=== PATIENT | female | born 1970 | race Caucasian/White ===

== ENCOUNTER 2016-09-08 19:46 | Emergency (ER) | payer OTHER ==
[2016-09-08] MEDS ORDERED: Sodium Chloride 0.9% 1,000 ML IV ONE (20:30)
--- NOTE | 2016-09-08 20:30 | C.PDOC ---
History Of Present Illness Pt ate at a restaurant yesterday after which she developed nausea, vomiting diarrhea and abdominal pain. Decreased po intake crampy abd pain. decreased po intake Time Seen by Provider: 09/08/16 20:30 Chief Complaint (Nursing): Abdominal Pain History/Exam Limitations: no limitations Onset/Duration Of Symptoms: Days (1) Current Symptoms Are (Timing): Still Present Context: Food Severity: Moderate Pain Scale Rating Of: 4 Location Of Pain/Discomfort: Diffuse Radiation Of Pain To:: None Quality Of Discomfort: Dull, Cramping Associated Symptoms: Nausea, Vomiting, Diarrhea. denies: Fever, Chills Exacerbating Factors: Food Alleviating Factors: None Last Bowel Movement: Today Recent travel outside of the [place]: No Additional History Per: Patient Abnormal Vaginal Bleeding: No Past Medical History Reviewed: Historical Data, Nursing Documentation, Vital Signs Vital Signs: Last Vital Signs Temp 97.9 F 09/08/16 19:55 Pulse 100 H 09/08/16 19:55 Resp 18 09/08/16 19:55 BP 101/71 09/08/16 19:55 Pulse Ox 99 09/08/16 20:30 - Medical History PMH: Asthma, HTN, Migraine Family History: States: No Known Family Hx - Social History Hx Alcohol Use: Yes Hx Substance Use: No - Immunization History Hx Influenza Vaccination: Yes Review Of Systems Constitutional: Negative for: Fever, Chills ENT: Negative for: Throat Pain Cardiovascular: Negative for: Chest Pain, Palpitations Respiratory: Negative for: Shortness of Breath Gastrointestinal: Positive for: Nausea, Vomiting, Abdominal Pain Genitourinary: Negative for: Dysuria Musculoskeletal: Negative for: Back Pain Skin: Negative for: Jaundice Neurological: Negative for: Weakness Psych: Negative for: Anxiety Physical Exam - Physical Exam Appears: Non-toxic Skin: Warm, Dry Oral Mucosa: Moist Neck: Supple Chest: Symmetrical Cardiovascular: Rhythm Regular Respiratory: No Rales, No Rhonchi, No Wheezing Gastrointestinal/Abdominal: No Soft, No Tenderness, No Distention Back: No CVA Tenderness Extremity: No Normal ROM Extremity: Bilateral: Atraumatic Neurological/Psych: Oriented x3, Normal Speech, Normal Cognition Gait: Steady ED Course And Treatment - Laboratory Results Result Diagrams: 09/08/16 20:41 09/08/16 20:41 O2 Sat by Pulse Oximetry: 99 Disposition Counseled Patient/Family Regarding: Studies Performed, Diagnosis, Need For Followup, Rx Given - Disposition Referrals: [facility] [Outside] Disposition: HOME/ ROUTINE Disposition Time: 20:30 Condition: FAIR Prescriptions: Ondansetron ODT [Zofran ODT] 1 odt PO BID PRN #10 odt PRN Reason: Nausea/Vomiting Instructions: Food Poisoning (ED) - Clinical Impression Clinical Impression: Abdominal pain, Food poisoning
[2016-09-08] MEDS ORDERED: Sodium Chloride 0.9% 1,000 ML ONE (20:41)
[2016-09-08 20:44] LABS: RBC URINE 2 /hpf (0-3); URINE BACTERIA RARE (<OCC); URINE BILIRUBIN NEGATIVE (NEGATIVE); URINE BLOOD NEGATIVE (NEGATIVE); URINE COLOR Yellow (YELLOW); URINE GLUCOSE (UA) NORMAL (Normal); URINE KETONE 1+ mg/dL (NEGATIVE); URINE LEUKOCYTE ESTERASE NEG Leu/uL (Negative); URINE PROTEIN 1+ mg/dL (NEGATIVE); URINE UROBILINOGEN NORMAL mg/dL (0.2-1.0); WBC URINE 3 /hpf (0-5)
[2016-09-08 20:56] LABS: CHLORIDE 103 mmol/L (98-107); SODIUM 141 mmol/L (132-148)
[2016-09-08 20:57] LABS: POTASSIUM 3.6 mmol/L (3.6-5.2)
[2016-09-08 20:58] LABS: GFR AFRICAN-AMERICAN > 60
[2016-09-08 20:59] LABS: ALB/GLOB RATIO 1.3 (1.0-2.1); ALKALINE PHOSPHATASE 67 U/L (38-126); ALT/SGPT 21 U/L (9-52); AST/SGOT 24 U/L (14-36); BILIRUBIN,TOTAL 0.8 mg/dL (0.2-1.3); BLOOD UREA NITROGEN 17 mg/dL (7-17); CALCIUM 8.3 mg/dl (8.6-10.4); CARBON DIOXIDE 24 mmol/L (22-30); GLUCOSE,RANDOM 98 mg/dL (65-105); TOTAL PROTEIN 7.1 g/dL (6.3-8.3)
[2016-09-08 21:06] LABS: BASO % 0.2 % (0.0-2.0); HEMATOCRIT 40.4 % (34.0-47.0); LYMPH # 0.8 K/uL (1.0-4.3); LYMPH % 9.5 % (20.0-40.0); MEAN CELL VOLUME 86.5 fL (81.0-99.0); MEAN CORPUSCULAR HEMOGLOBIN 28.7 pg (27.0-31.0); MEAN CORPUSCULAR HGB CONC 33.1 g/dL (33.0-37.0); MEAN PLATELET VOLUME 9.3 fL (7.2-11.7); MONO # 0.3 K/uL (0.0-0.8); MONO % 3.6 % (0.0-10.0); PLATELET COUNT 217 K/uL (130-400); RED CELL DISTRIBUTION WIDTH 13.4 % (11.5-14.5); WHITE BLOOD COUNT 8.4 K/uL (4.8-10.8)
[2016-09-08 22:26] VITALS: BP 113/77; PULSE 82; RESP 20; TEMP 98.5; O2SAT 100
[2016-09-08 22:45] LABS: NEUTROPHIL 77 % (50-75); TOTAL CELLS COUNTED 100
[2016-09-08 22:47] LABS: GIANT PLATELETS PRESENT; LARGE PLATELETS PRESENT; SMUDGE CELLS PRESENT
== END 2016-09-08 22:29 | disposition home or self-care (01) ==
LOC: C.ER 19:46
DX: T62.91XA Toxic effect of unspecified noxious substance eaten as food, accidental (unintentional), initial encounter (principal); R10.9 Unspecified abdominal pain
CPT/HCPCS: 80053; 81001; 83690; 84703; 85025; 96361; 96374; 96375; 99285; J2405; J7040

== ENCOUNTER 2016-09-10 10:07 | Observation (INO) | payer OTHER ==
[2016-09-10] MEDS ORDERED: Sodium Chloride 0.9% 1,000 ML ONE (10:36)
[2016-09-10 10:41] LABS: RBC URINE 13 /hpf (0-3); URINE BACTERIA OCC (<OCC); URINE BILIRUBIN NEGATIVE (NEGATIVE); URINE BLOOD 1+ (NEGATIVE); URINE COLOR Amber (YELLOW); URINE GLUCOSE (UA) NORMAL (Normal); URINE KETONE TRACE mg/dL (NEGATIVE); URINE LEUKOCYTE ESTERASE NEG Leu/uL (Negative); URINE PROTEIN 2+ mg/dL (NEGATIVE); URINE UROBILINOGEN NORMAL mg/dL (0.2-1.0); WBC URINE 3 /hpf (0-5)
[2016-09-10] MEDS ORDERED: Sodium Chloride 0.9% 1,000 ML IV ONE (10:42)
--- NOTE | 2016-09-10 10:44 | C.PDOC ---
History Of Present Illness 46 year old patient, with a past medical history of migraines, hypertension, and asthma, presents to the ED complaining of vomiting, diarrhea and generalized abdominal pain for the past 3 days. Patient was seen in the ER for the same complaint 2 days ago. She was discharged with Zofran. Patient states she took Zofran, but she still continued to vomit. Patient also complains of weakness and headache that began today. Patient denies any fever, chest pain, shortness of breath or urinary symptoms. Time Seen by Provider: 09/10/16 10:37 Chief Complaint (Nursing): GI Problem History Per: Patient History/Exam Limitations: no limitations Onset/Duration Of Symptoms: Days (3) Current Symptoms Are (Timing): Still Present Context: Other Severity: Mild Pain Scale Rating Of: 3 Location Of Pain/Discomfort: Diffuse Radiation Of Pain To:: None Quality Of Discomfort: "Pain" Associated Symptoms: Vomiting, Diarrhea Exacerbating Factors: None Alleviating Factors: None Last Bowel Movement: Today Recent travel outside of the [place]: No Additional History Per: Prior Records Abnormal Vaginal Bleeding: No Past Medical History Reviewed: Historical Data, Nursing Documentation, Vital Signs Vital Signs: Last Vital Signs Temp 98.6 F 09/10/16 12:08 Pulse 80 09/10/16 12:08 Resp 15 09/10/16 12:08 BP 99/66 L 09/10/16 12:08 Pulse Ox 99 09/10/16 12:29 - Medical History PMH: Asthma, HTN, Migraine Family History: States: Unknown Family Hx - Social History Hx Alcohol Use: Yes Hx Substance Use: No - Immunization History Hx Influenza Vaccination: Yes Review Of Systems Except As Marked, All Systems Reviewed And Found Negative. Constitutional: Positive for: Weakness. Negative for: Fever Cardiovascular: Negative for: Chest Pain Respiratory: Negative for: Shortness of Breath Gastrointestinal: Positive for: Vomiting, Abdominal Pain, Diarrhea Genitourinary: Negative for: Dysuria, Frequency Neurological: Positive for: Headache Physical Exam - Physical Exam Appears: Non-toxic, No Acute Distress Skin: Warm, Dry Head: Atraumatic, Normacephalic Eye(s): bilateral: Normal Inspection, EOMI Oral Mucosa: Moist Neck: Normal ROM, Supple Chest: Symmetrical Cardiovascular: Rhythm Regular Respiratory: Normal Breath Sounds, No Rales, No Rhonchi, No Wheezing Gastrointestinal/Abdominal: Soft, Tenderness (generalized; non-focal), No Guarding, No Rebound Back: Normal Inspection, No CVA Tenderness Extremity: Normal ROM Neurological/Psych: Oriented x3 Gait: Steady ED Course And Treatment - Laboratory Results Result Diagrams: 09/10/16 10:45 09/10/16 10:45 O2 Sat by Pulse Oximetry: 99 (room air) Pulse Ox Interpretation: Normal - CT Scan/US Abdomen/Pelvis CT Other Rad Studies (CT/US): Read By Radiologist (Cory Ortega MD), Radiology Report Reviewed CT/US Interpretation: PROCEDURE: CT Abdomen and Pelvis with contrast. HISTORY : abd pain, vomiting and diarrhea. COMPARISON: None. TECHNIQUE: Contrast dose: 100 cc Visipaque 320. Radiation dose: Total exam DLP = 250.27 mGy-cm. This CT exam was performed using one or more of the following dose reduction techniques: Automated exposure control, adjustment of the mA and/or kV according to patient size, and/or use of iterative reconstruction technique. FINDINGS: LOWER THORAX: Unremarkable. LIVER: Unremarkable. No gross lesion or ductal dilatation. GALLBLADDER AND BILE DUCTS: Unremarkable. PANCREAS: Unremarkable. No gross lesion or ductal dilatation. SPLEEN: Unremarkable. ADRENALS: Unremarkable. No mass. KIDNEYS AND URETERS: Unremarkable. No hydronephrosis. No solid mass. VASCULATURE: Unremarkable. No aortic aneurysm. BOWEL: Diffuse, severe licona colitis. No associated mechanical obstruction, loculated air or free air. APPENDIX: Normal appendix. PERITONEUM: Trace free fluid identified in the pelvis/cul de sac. LYMPH NODES: Unremarkable. No enlarged lymph nodes. BLADDER: Unremarkable. REPRODUCTIVE: Unremarkable. BONES: No acute fracture. OTHER FINDINGS: None. IMPRESSION: Severe licona colitis. Additional benign and/or incidental findings described above. Medical Decision Making Medical Decision Making: Impression: 46 y/o female with vomiting, diarrhea, and generalized abdominal pain Plan: * Abdomen/Pelvis CT (IV contrast) * Labs * Protonix, IV fluids, Zofran * Reassess and disposition Progress: Chart reviewed from 09/08/16. Labs were unremarkable. ED OBSERVATION Discharge: Yes Date of observation admission: 09/10/16 Time of observation admission: 10:44 - Observation admission statement Patient is being placed in observation because:: Abdominal pain with associated vomiting and diarrhea - Goals of Observation Goals of observation are:: IV hydration, labs and imaging - Progress Note Progress Note: 09/10/16 11:30 Labs reviewed and no acute changes from last visit. No leukocytosis shift or electrolyte abnormality. 09/10/16 12:20 CT reviewed showing colitis 09/10/16 12:28 Patient re-evaluated she remains afebrile and reports feeling better. I explained lab and CT findings. She is agreeable with plan for discharge with antibiotics. Instruct to follow up with primary physician in few days. 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 - Scribe Statement The provider has reviewed the documentation as recorded by the Scribe Darcy Rivero All medical record entries made by the Scribe were at my direction and personally dictated by me. I have reviewed the chart and agree that the record accurately reflects my personal performance of the history, physical exam, medical decision making, and the department course for this patient. I have also personally directed, reviewed, and agree with the discharge instructions and disposition.
[2016-09-10 10:49] LABS: HEMATOCRIT 40.3 % (34.0-47.0); LYMPH # 1.1 K/uL (1.0-4.3); LYMPH % 23.7 % (20.0-40.0); MEAN CELL VOLUME 85.4 fL (81.0-99.0); MEAN CORPUSCULAR HEMOGLOBIN 28.7 pg (27.0-31.0); MEAN CORPUSCULAR HGB CONC 33.6 g/dL (33.0-37.0); MEAN PLATELET VOLUME 9.1 fL (7.2-11.7); MONO # 0.5 K/uL (0.0-0.8); MONO % 10.4 % (0.0-10.0); NRBC % 0.1 % (0.0-2.0); RED CELL DISTRIBUTION WIDTH 13.5 % (11.5-14.5); WHITE BLOOD COUNT 4.5 K/uL (4.8-10.8)
[2016-09-10 10:59] LABS: CHLORIDE 101 mmol/L (98-107); POTASSIUM 3.7 mmol/L (3.6-5.2); SODIUM 138 mmol/L (132-148)
[2016-09-10 11:01] LABS: GFR AFRICAN-AMERICAN > 60
[2016-09-10 11:02] LABS: ALB/GLOB RATIO 1.1 (1.0-2.1); ALKALINE PHOSPHATASE 60 U/L (38-126); ALT/SGPT 26 U/L (9-52); AST/SGOT 32 U/L (14-36); BILIRUBIN,TOTAL 0.9 mg/dL (0.2-1.3); BLOOD UREA NITROGEN 10 mg/dL (7-17); CALCIUM 8.1 mg/dl (8.6-10.4); CARBON DIOXIDE 23 mmol/L (22-30); GLUCOSE,RANDOM 88 mg/dL (65-105); TOTAL PROTEIN 6.9 g/dL (6.3-8.3)
[2016-09-10] MEDS ORDERED: Iodixanol 320 MG/ML 100 ML BOTTLE IV ONE (11:33)
[2016-09-10 12:09] VITALS: BP 99/66; PULSE 80; RESP 15; TEMP 98.6
--- NOTE | 2016-09-10 12:15 | CT ---
PROCEDURE: CT Abdomen and Pelvis with contrast HISTORY: abd pain, vomiting and diarrhea COMPARISON: None. TECHNIQUE: Contrast dose: 100 cc Visipaque 320. Radiation dose: Total exam DLP = 250.27 mGy-cm. This CT exam was performed using one or more of the following dose reduction techniques: Automated exposure control, adjustment of the mA and/or kV according to patient size, and/or use of iterative reconstruction technique. FINDINGS: LOWER THORAX: Unremarkable. LIVER: Unremarkable. No gross lesion or ductal dilatation. GALLBLADDER AND BILE DUCTS: Unremarkable. PANCREAS: Unremarkable. No gross lesion or ductal dilatation. SPLEEN: Unremarkable. ADRENALS: Unremarkable. No mass. KIDNEYS AND URETERS: Unremarkable. No hydronephrosis. No solid mass. VASCULATURE: Unremarkable. No aortic aneurysm. BOWEL: Diffuse, severe licona colitis. No associated mechanical obstruction, loculated air or free air. APPENDIX: Normal appendix. PERITONEUM: Trace free fluid identified in the pelvis/cul de sac. LYMPH NODES: Unremarkable. No enlarged lymph nodes. BLADDER: Unremarkable. REPRODUCTIVE: Unremarkable. BONES: No acute fracture. OTHER FINDINGS: None. IMPRESSION: Severe licona colitis. Additional benign and/or incidental findings described above.
[2016-09-10 12:16] VITALS: O2SAT 99
== END 2016-09-10 12:29 | disposition home or self-care (01) ==
LOC: C.ER 10:07 → C.9OBSV 10:43
PROVIDERS: ADMIT Emergency Medicine; ATTEND Emergency Medicine
DX: K52.9 Noninfective gastroenteritis and colitis, unspecified (principal); J45.909 Unspecified asthma, uncomplicated; I10 Essential (primary) hypertension
CPT/HCPCS: 74177; 80053; 81001; 83690; 84703; 85025; 96360; 96374; 99283; C9113; G0378; J2405; J7040; Q9967

== ENCOUNTER 2016-10-25 10:34 | Emergency (ER) | payer OTHER ==
[2016-10-25 10:47] VITALS: RESP 18; O2SAT 100
[2016-10-25] MEDS ORDERED: Sodium Chloride 0.9% 1,000 ML IV ONE (10:56)
[2016-10-25] MEDS ORDERED: Sodium Chloride 0.9% 1,000 ML ONE (11:05)
--- NOTE | 2016-10-25 11:16 | C.PDOC ---
History Of Present Illness 46 y/o female presents to ED with complaints of left flank pain and sharp left suprapubic pain which onset 1 hour ago. Pt reports associated nausea, 1 episode of vomiting, urinary frequency, and dysuria. Pt took OTC pain reliever without relief. History of kidney stones. PSHx breast implants and liposuction last year. Denies fever, chest pain, SOB or any other complaints. Time Seen by Provider: 10/25/16 10:56 Chief Complaint (Nursing): Abdominal Pain History Per: Patient History/Exam Limitations: no limitations Onset/Duration Of Symptoms: Mins Current Symptoms Are (Timing): Still Present Severity: Moderate Location Of Pain/Discomfort: Suprapubic Quality Of Discomfort: Sharp Associated Symptoms: Nausea, Vomiting, Back Pain (left flank), Urinary Symptoms. denies: Fever, Chills, Chest Pain Exacerbating Factors: None Alleviating Factors: None Recent travel outside of the [place]: No Past Medical History Reviewed: Historical Data, Nursing Documentation, Vital Signs Vital Signs: Last Vital Signs Temp 98.7 F 10/25/16 14:05 Pulse 90 10/25/16 14:05 Resp 18 10/25/16 14:05 BP 141/87 10/25/16 14:05 Pulse Ox 100 10/25/16 19:06 - Medical History PMH: Asthma, HTN, Migraine Family History: States: Unknown Family Hx - Social History Hx Alcohol Use: Yes Hx Substance Use: No - Immunization History Hx Influenza Vaccination: Yes Review Of Systems Constitutional: Negative for: Fever, Chills Cardiovascular: Negative for: Chest Pain Respiratory: Negative for: Shortness of Breath Gastrointestinal: Positive for: Nausea, Vomiting, Abdominal Pain Genitourinary: Positive for: Dysuria, Frequency Musculoskeletal: Positive for: Back Pain (left flank) Physical Exam - Physical Exam Appears: Non-toxic, In Acute Distress (uncomfortable, groaning in pain) Skin: Warm, Dry, No Rash Head: Atraumatic, Normacephalic Eye(s): bilateral: Normal Inspection, EOMI Oral Mucosa: Moist Neck: Normal, Normal ROM, Supple Chest: Symmetrical Cardiovascular: Rhythm Regular, No Murmur Respiratory: Normal Breath Sounds, No Rales, No Rhonchi, No Wheezing Gastrointestinal/Abdominal: Soft, Tenderness (diffusely), No Mass, No Distention , No Guarding, No Rebound Extremity: Bilateral: Atraumatic, Normal ROM Neurological/Psych: Oriented x3, Normal Speech Gait: Steady ED Course And Treatment - Laboratory Results Result Diagrams: 10/25/16 11:14 10/25/16 11:14 Lab Interpretation: Abnormal O2 Sat by Pulse Oximetry: 100 (room air) Pulse Ox Interpretation: Normal - CT Scan/US CT abdomen Other Rad Studies (CT/US): Read By Radiologist, Radiology Report Reviewed CT/US Interpretation: PROCEDURE: CT Abdomen and Pelvis without intravenous contrast. HISTORY: left flank pain. COMPARISON: 09/10/2016. TECHNIQUE: Technique. Contrast Dose: Radiation dose: Total exam DLP = mGy-cm. This CT exam was performed using one or more of the following dose reduction techniques : Automated exposure control, adjustment of the mA and/or kV according to patient size, and/or use of iterative reconstruction technique. FINDINGS: LOWER THORAX: Status post bilateral breast augmentation. LIVER: Unremarkable. No gross lesion or ductal dilatation. GALLBLADDER AND BILE DUCTS : Unremarkable. PANCREAS: Unremarkable. No gross lesion or ductal dilatation. SPLEEN: Unremarkable. ADRENALS: Unremarkable. No mass. KIDNEYS AND URETERS: 4 millimeter nonobstructive calculus in the mid left kidney. Mild caliectasis and left hydroureter with a punctate calculus measuring roughly 1 millimeter at the left UVJ. VASCULATURE: Unremarkable. No aortic aneurysm. BOWEL: Unremarkable. No obstruction. No gross mural thickening. APPENDIX: Unremarkable. Normal appendix. PERITONEUM: Unremarkable. No free fluid. No free air. LYMPH NODES: Unremarkable. No enlarged lymph nodes. BLADDER: Unremarkable. REPRODUCTIVE: Unremarkable. BONES: No acute fracture. OTHER FINDINGS: Innumerable nodules throughout the subcutaneous fat of the buttocks likely data injection granulomata. IMPRESSION: 4 millimeter nonobstructive calculus in the mid left kidney. Mild caliectasis and left hydroureter with a punctate calculus measuring roughly 1 millimeter at the left UVJ. Medical Decision Making Medical Decision Making: Impression: 46 y.o female with abdominal and flank pain Prior records reviewed, patient was seen 09/10/16 for abdominal pain with associated vomiting and diarrhea. Labs and CT performed, with no acute lab findings and the CT showed licona-colitis. Plan: * CT abdomen * labs * UA * pyridium, toradol * IV fluids Labs reviewed showing no leukocytosos or bands, no electrolyte abnormality. UA shows positive nitrates, WBC and LE. CT shows 4 millimeter nonobstructive calculus in the mid left kidney. Mild caliectasis and left hydroureter with a punctate calculus measuring roughly 1 millimeter at the left UVJ. Upon reevaluation patient continues to have pain, additional meds ordered. Patient has penicillin allergy will treat with Cipro. Patient remained without fever and improved after hydration and pain meds. Patient given copy of CT report and labs. Patient instructed to follow up with PCP and urologist. Disposition Counseled Patient/Family Regarding: Diagnosis, Need For Followup, Rx Given - Disposition Referrals: Larry Hodgson MD [Staff Provider] - Disposition: HOME/ ROUTINE Disposition Time: 13:38 Condition: STABLE Additional Instructions: Your labs and CT show urinary tract infection and kidney stone Take Percocet for severe pain and Motrin for any pain Take Flomax for stone and Cipro antibiotic for UTI Please follow up with urologist in timely manner Prescriptions: Ciprofloxacin [Cipro] 1 tab PO BID #14 tab Ibuprofen [Motrin] 600 mg PO Q8 #30 tab oxyCODONE/Acetaminophen [Percocet 5/325 mg Tab] 1 tab PO Q8 #15 tab Tamsulosin [Flomax] 0.4 mg PO DAILY #10 cap Instructions: Kidney Stones (DC), Urinary Tract Infection in Women (DC) - POA Present On Arrival: None - Clinical Impression Clinical Impression: Kidney stone on left side, UTI (urinary tract infection) - 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 - Scribe Statement The provider has reviewed the documentation as recorded by the Chava Guardado All medical record entries made by the Chava were at my direction and personally dictated by me. I have reviewed the chart and agree that the record accurately reflects my personal performance of the history, physical exam, medical decision making, and the department course for this patient. I have also personally directed, reviewed, and agree with the discharge instructions and disposition.
[2016-10-25 11:17] LABS: BASO # 0.1 K/uL (0.0-0.2); BASO % 0.8 % (0.0-2.0); EOS # 0.1 K/uL (0.0-0.7); EOS % 0.9 % (0.0-4.0); HEMATOCRIT 40.4 % (34.0-47.0); LYMPH # 2.3 K/uL (1.0-4.3); LYMPH % 23.4 % (20.0-40.0); MEAN CELL VOLUME 86.3 fL (81.0-99.0); MEAN CORPUSCULAR HEMOGLOBIN 29.1 pg (27.0-31.0); MEAN CORPUSCULAR HGB CONC 33.7 g/dL (33.0-37.0); MEAN PLATELET VOLUME 8.7 fL (7.2-11.7); MONO # 0.5 K/uL (0.0-0.8); MONO % 5.3 % (0.0-10.0); NRBC % 0.1 % (0.0-2.0); RED CELL DISTRIBUTION WIDTH 15.1 % (11.5-14.5)
[2016-10-25 11:18] LABS: WHITE BLOOD COUNT 9.6 K/uL (4.8-10.8)
[2016-10-25 11:24] LABS: RBC URINE 21 /hpf (0-3); URINE BACTERIA MANY (<OCC); URINE BILIRUBIN NEGATIVE (NEGATIVE); URINE BLOOD 1+ (NEGATIVE); URINE CALCIUM OXALATE CRYSTALS OCC /hpf (<OCC); URINE COLOR Amber (YELLOW); URINE GLUCOSE (UA) NORMAL (Normal); URINE KETONE NEGATIVE (NEGATIVE); URINE LEUKOCYTE ESTERASE 1+ Leu/uL (Negative); URINE PROTEIN 1+ mg/dL (NEGATIVE); WBC URINE 17 /hpf (0-5)
[2016-10-25 11:47] LABS: CHLORIDE 106 mmol/L (98-107)
[2016-10-25 11:48] LABS: POTASSIUM 3.6 mmol/L (3.6-5.2); SODIUM 140 mmol/L (132-148)
[2016-10-25 11:50] LABS: BILIRUBIN,TOTAL 0.7 mg/dL (0.2-1.3); GFR AFRICAN-AMERICAN > 60
[2016-10-25 11:51] LABS: ALB/GLOB RATIO 1.8 (1.0-2.1); ALKALINE PHOSPHATASE 77 U/L (38-126); ALT/SGPT 56 U/L (9-52); AST/SGOT 44 U/L (14-36); BLOOD UREA NITROGEN 22 mg/dL (7-17); CALCIUM 9.5 mg/dl (8.6-10.4); CARBON DIOXIDE 20 mmol/L (22-30); GLUCOSE,RANDOM 116 mg/dL (65-105); TOTAL PROTEIN 7.9 g/dL (6.3-8.3)
[2016-10-25] MEDS ORDERED: Morphine 4 MG/ML VIAL ONE (12:19)
--- NOTE | 2016-10-25 13:13 | CT ---
PROCEDURE: CT Abdomen and Pelvis without intravenous contrast HISTORY: left flank pain COMPARISON: 09/10/2016. TECHNIQUE: Technique. Contrast Dose: Radiation dose: Total exam DLP = mGy-cm. This CT exam was performed using one or more of the following dose reduction techniques: Automated exposure control, adjustment of the mA and/or kV according to patient size, and/or use of iterative reconstruction technique. FINDINGS: LOWER THORAX: Status post bilateral breast augmentation. LIVER: Unremarkable. No gross lesion or ductal dilatation. GALLBLADDER AND BILE DUCTS: Unremarkable. PANCREAS: Unremarkable. No gross lesion or ductal dilatation. SPLEEN: Unremarkable. ADRENALS: Unremarkable. No mass. KIDNEYS AND URETERS: 4 millimeter nonobstructive calculus in the mid left kidney. Mild caliectasis and left hydroureter with a punctate calculus measuring roughly 1 millimeter at the left UVJ. VASCULATURE: Unremarkable. No aortic aneurysm. BOWEL: Unremarkable. No obstruction. No gross mural thickening. APPENDIX: Unremarkable. Normal appendix. PERITONEUM: Unremarkable. No free fluid. No free air. LYMPH NODES: Unremarkable. No enlarged lymph nodes. BLADDER: Unremarkable. REPRODUCTIVE: Unremarkable. BONES: No acute fracture. OTHER FINDINGS: Innumerable nodules throughout the subcutaneous fat of the buttocks likely data injection granulomata. IMPRESSION: 4 millimeter nonobstructive calculus in the mid left kidney. Mild caliectasis and left hydroureter with a punctate calculus measuring roughly 1 millimeter at the left UVJ.
[2016-10-25 14:07] VITALS: BP 141/87; PULSE 90; TEMP 98.7
[2016-10-25] MEDS ORDERED: Oxycodone/Acetaminophen 5/325 mg Tab PO STA (14:12)
[2016-10-25] MEDS ORDERED: Oxycodone/Acetaminophen 5/325 mg Tab ONE (14:14)
== END 2016-10-25 14:18 | disposition home or self-care (01) ==
LOC: C.ER 10:34
DX: N39.0 Urinary tract infection, site not specified (principal); N20.0 Calculus of kidney; I10 Essential (primary) hypertension
CPT/HCPCS: 74176; 80053; 81001; 84703; 85025; 87086; 96361; 96374; 96375; 99285; J1885; J2270; J7040

== ENCOUNTER 2017-07-05 18:45 | Emergency (ER) | payer SELFPAY ==
[2017-07-05 19:26] VITALS: BP 127/81; PULSE 78; RESP 18; TEMP 97.9; O2SAT 94
[2017-07-05 19:59] LABS: HCG,QUALITATIVE URINE NEGATIVE (NEGATIVE)
[2017-07-05 20:01] LABS: SQUAMOUS EPITHIAL 11 /hpf (0-5); URINE BACTERIA MOD (<OCC); URINE BILIRUBIN NEGATIVE (NEGATIVE); URINE BLOOD 2+ (NEGATIVE); URINE CLARITY Hazy (Clear); URINE COLOR Amber (YELLOW); URINE GLUCOSE (UA) NORMAL (Normal); URINE LEUKOCYTE ESTERASE NEG Leu/uL (Negative); URINE NITRATE NEGATIVE (NEGATIVE); URINE PROTEIN 1+ mg/dL (NEGATIVE)
== END 2017-07-05 20:37 | disposition left against medical advice (07) ==
LOC: C.ER 18:45
DX: Z02.89 Encounter for other administrative examinations (principal); R10.30 Lower abdominal pain, unspecified
CPT/HCPCS: 81001; 84703; LWBS0